=== PATIENT | female | born 1980 | race Asian ===

== ENCOUNTER 2020-02-13 18:44 | Emergency (ER) | payer MEDICARE, OTHER ==
[~2020-02-13] VITALS: Ht 175.3 cm; Wt 102.3 kg
[~2020-02-13 18:44] MED LIST: CEPH500 PO; QUET100T PO; QUET50TA PO; SERT100T12 PO
[2020-02-13] MEDS ORDERED: BUPR75 PO (19:48)
[2020-02-13] MEDS ORDERED: CITA-144 PO (19:48)
[2020-02-13] MEDS ORDERED: FLUT16H NASAL (19:48)
[2020-02-13] MEDS ORDERED: LORA-999 PO (19:48)
[2020-02-13] MEDS ORDERED: QUET200T PO (19:48)
[2020-02-13] MEDS ORDERED: DIPH25TA51 PO (19:48)
[2020-02-13] MEDS ORDERED: PALI234D IM (19:48)
[2020-02-13] MEDS ORDERED: ALBU8HFA IH (19:48)
[2020-02-13] MEDS ORDERED: CHOL100018 PO (19:48)
[2020-02-13] MEDS ORDERED: SERT50TA12 PO (19:59)
[2020-02-13] MEDS ORDERED: PALI819S IM (19:59)
[2020-02-13] MEDS ORDERED: BUPR-93 PO (19:59)
[2020-02-13 20:19] VITALS: BP 145/75
== END 2020-02-13 20:29 | disposition home or self-care (01) ==
LOC: EMS 18:44
DX: M77.11 Lateral epicondylitis, right elbow (principal); J45.909 Unspecified asthma, uncomplicated; F19.90 Other psychoactive substance use, unspecified, uncomplicated; F25.9 Schizoaffective disorder, unspecified; Z87.891 Personal history of nicotine dependence; Z59.0 Homelessness; Z88.8 Allergy status to other drugs, medicaments and biological substances

== ENCOUNTER 2021-08-29 14:49 | Emergency (ER) | payer MEDICARE, OTHER ==
[~2021-08-29] VITALS: Ht 177.8 cm; Wt 81.4 kg
[~2021-08-29 14:49] MED LIST changes: +ALBU8HFA IH; +BUPR-93 PO; -CEPH500 PO; +CHOL-35 PO; +CITA-144 PO; +DIPH25TA51 PO; +FLUT16H NASAL; +LORA-999 PO; +PALI819S IM; +QUET200T PO; -QUET50TA PO; +SERT-158 PO; -SERT100T12 PO
[2021-08-29 15:56] LABS: BASOPHILS % (AUTO) 0.5 % (0.0-2.0); EOSINOPHILS % (AUTO) 1.6 % (1.0-6.0); HEMATOCRIT 42.1 % (36-46); HEMOGLOBIN 14.4 g/dL (12.0-16.0); LYMPHOCYTES # (AUTO) 1.6 K/uL (1.0-4.8); LYMPHOCYTES % (AUTO) 28.6 % (22.0-44.0); MEAN CORPUSCULAR HGB CONC 34.2 G/dL (31.0-37.0); MEAN CORPUSCULAR VOLUME 91 fL (80-100); MONOCYTES # (AUTO) 0.5 K/uL (0.1-1.0); MONOCYTES % (AUTO) 9.4 % (2.0-9.0); NEUTROPHILS # (AUTO) 3.3 K/uL (1.8-7.7); NEUTROPHILS % (AUTO) 59.9 % (40.0-70.0); PLATELET COUNT (AUTO) 342 K/uL (150-450); RED BLOOD CELL COUNT(AUTO) 4.64 MIL/uL (4.00-5.20); RED CELL DISTRIBUTION WIDTH 13.5 % (11.5-14.5)
[2021-08-29 16:17] LABS: ANION GAP 5 mmol/L (8-16); CALCIUM, TOTAL 9.1 mg/dL (8.8-10.5); CARBON DIOXIDE 31 mmol/L (22-29); CHLORIDE 101 mmol/L (98-107); CREATININE 1.27 mg/dL (0.60-1.30); GLOMERULAR FILTR. RATE CALC 47 mL/min (>60); GLUCOSE,RANDOM 115 mg/dL (70-110); POTASSIUM 4.1 mmol/L (3.5-5.1); SODIUM SERUM 137 mmol/L (136-145); UREA NITROGEN, BLOOD 11 mg/dL (7-18)
[2021-08-29 16:27] LABS: ALANINE AMINOTRANSFERASE 21 U/L (12-78); ALBUMIN 3.6 g/dL (3.4-5.0); ALKALINE PHOSPHATASE 52 U/L (46-116); ASPARTATE AMINOTRANSFERASE 15 U/L (15-37); BILIRUBIN,TOTAL 0.4 mg/dL (0.1-1.0); HCG,QUANTITATIVE < 1 mIU/mL (0-6); TOTAL PROTEIN, SERUM 7.6 g/dL (6.4-8.2)
[2021-08-29 18:51] VITALS: BP 118/88
== END 2021-08-29 20:46 | disposition home or self-care (01) ==
LOC: EMS 14:49
DX: R55 Syncope and collapse (principal); F20.9 Schizophrenia, unspecified; Z87.891 Personal history of nicotine dependence
CPT/HCPCS: 70450; 80053; 84146; 84484; 84702; 85025; 93005; 99285

== ENCOUNTER 2021-09-25 20:33 | Emergency (ER) | payer MEDICARE, OTHER ==
[~2021-09-25] VITALS: Ht 175.3 cm; Wt 77.3 kg
[2021-09-26 02:51] VITALS: BP 115/78
== END 2021-09-26 04:06 | disposition home or self-care (01) ==
LOC: EMS 20:36
DX: F20.9 Schizophrenia, unspecified (principal); J45.909 Unspecified asthma, uncomplicated; Z87.891 Personal history of nicotine dependence; Z88.8 Allergy status to other drugs, medicaments and biological substances; Z79.899 Other long term (current) drug therapy
CPT/HCPCS: 99284; Z7502